=== PATIENT | male | born 1970 | race Caucasian/White ===

== ENCOUNTER 2017-02-25 11:44 | Emergency (ER) | payer BC ==
[~2017-02-25] VITALS: Ht 167.6 cm; Wt 69.8 kg
--- NOTE | ~2017-02-25 | EKG ---
PATIENT: BELKYS RENEE UNIT #: [id number] Ventricular Rate: 61 BPM Atrial Rate: 61 BPM P-R Interval: 140 ms QRS Duration: 84 ms Q-T Interval: 394 ms QTC Calculation(Bezet): 396 ms P Douglas: 62 degrees Calculated R Douglas: 74 degrees Calculated T Douglas: 23 degrees Diagnosis Line: Normal sinus rhythm Diagnosis Line: Normal ECG Diagnosis Line: Diagnosis Line: Confirmed by KERRI ERAZO MD ([id number]) on 02/25/2017 Diagnosis Line: 6:33:04 PM INTERPRETING MD: KACEY CLARK
[2017-02-25 12:35] LABS: POC - CKMB <1.0 ng/mL (0.0-7.9); POC - TROPONIN <0.05 ng/mL (<=0.05)
[2017-02-25 12:51] LABS: BASOPHIL% 0.5 % (0-2.5); EOSINOPHIL# 0.1 X10e3 (0-0.7); EOSINOPHIL% 1.4 % (0.0-7.0); HEMATOCRIT 48.9 % (38.0-50.0); HEMOGLOBIN 16.4 gm/dL (13.0-16.0); LYMPHOCYTE# 1.4 X10e3 (1.0-3.5); MEAN CELL VOLUME 88.6 FL (83-96); MEAN CORPUSCULAR HEMOGLOBIN 29.7 PG (28-34); MEAN CORPUSCULAR HGB CONC 33.5 g/dL (30-36); MONOCYTE# 0.6 X10e3 (0-1.0); MONOCYTE% 6.7 % (3.0-12.0); NEUTROPHIL# 6.6 X10e3 (1.5-7.1); NEUTROPHIL% 75.4 % (40-75); PLATELET COUNT 214 X10e3 (140-420); RED BLOOD COUNT 5.52 X10e (3.90-5.60); WHITE BLOOD COUNT 8.7 X10e3 (4.0-10.5)
[2017-02-25 12:52] LABS: DIFF IND NO
[2017-02-25 13:19] LABS: ALBUMIN SERUM 4.1 g/dL (3.5-5.0); BILIRUBIN, DIRECT 0.1 mg/dL (0.0-0.2); BILIRUBIN,INDIRECT 0.3 mg/dL (0.0-0.9); BILIRUBIN,TOTAL 0.4 mg/dL (0.2-2.0); BUN/CREATININE RATIO 12.5; CALCIUM SERUM 9.1 mg/dL (8.4-10.2); CREATININE SERUM 0.8 mg/dL (0.6-1.4); GLOM FILT RATE Estimated 108.7 mL/min (>60); POTASSIUM 3.9 mmol/L (3.5-5.1); PROTEIN TOTAL SERUM 6.9 g/dL (6.0-8.3)
== END 2017-02-25 14:04 | disposition home or self-care (01) ==
LOC: CED 11:44
PROVIDERS: Emergency Medicine
DX: R53.1 Weakness (principal); R42 Dizziness and giddiness; R11.2 Nausea with vomiting, unspecified; F17.200 Nicotine dependence, unspecified, uncomplicated; Z88.0 Allergy status to penicillin
CPT/HCPCS: 36415; 80048; 80076; 82553; 82947; 84484; 85025; 93005; 96360; 99285